=== PATIENT | female | born 1965 | race Caucasian/White ===

== ENCOUNTER 2019-07-28 14:45 | Outpatient (CLI) | payer OTHER, SELFPAY ==
--- NOTE | 2019-07-28 | ECHO_ITS ---
Patient Info Name: Candie Neff Age: 54 years : 1965 Gender: Female Ht: 66 in Wt: 175 lbs BSA: 1.94 m2 HR: 61 bpm BP: 124 / 86 mmHg Heart Rhythm: Sinus Rhythm Technical Quality: Good Exam Date: 07/28/2019 3:25 PM Exam Location: [facility] Patient Status: Outpatient Admit Date: 07/28/2019 Staff Ordering Physician: NicaAmbrocio MD Lunchroom Aide: Shae Toney RDCS Attending Provider: Nica, Ambrocio Carmichael MD Referring Physician: Nica BADILLO; Exam Type: CA echo doppler color flow Study Info Indications z787.898 - personnel hx of other conditions Complete two-dimensional, color flow and Doppler transthoracic echocardiogram is performed. Summary 1. Left ventricular chamber dimension is mildly enlarged. 2. Left ventricular systolic function is normal, estimated at 60-65%. 3. There is mildly increased left ventricular wall thickness. 4. Left ventricular septal wall motion is normal. 5. The left ventricular diastolic function is normal. 6. Left atrial chamber dimension is mildly enlarged. 7. There is mild mitral valve regurgitation. 8. There is mild tricuspid valve regurgitation. Left Ventricle Left ventricular chamber dimension is mildly enlarged. Left ventricular systolic function is normal, estimated at 60-65%. There is mildly increased left ventricular wall thickness. Left ventricular septal wall motion is normal. The left ventricular diastolic function is normal. Right Ventricle Right ventricular chamber dimension is normal. Right ventricular systolic function is normal. Left Atria Left atrial chamber dimension is mildly enlarged. Right Atria Right atrial chamber dimension is normal. Atrial Septum Intact interatrial septum visualized by color flow imaging. Aortic Valve The aortic valve is trileaflet. There is mild aortic valve sclerosis. There is no aortic valve stenosis. There is trace aortic valve regurgitation. Pulmonic Valve The pulmonic valve is normal. There is no pulmonic valve stenosis. There is trace pulmonic regurgitation. Mitral Valve The mitral valve has thickened leaflets. There is no mitral valve stenosis. There is mild mitral valve regurgitation. Tricuspid Valve The tricuspid valve leaflets are normal. There is no significant tricuspid valve stenosis. There is mild tricuspid valve regurgitation. No pulmonary hypertension, estimated pulmonary arterial systolic pressure is 21 mmHg. Pericardium/Pleural The pericardium appears normal. There is no pericardial effusion. Inferior Vena Cava Normal inferior vena cava with >50% collapse upon inspiration consistent with normal right atrial pressure, 5 mmHg. Aorta The aortic root size at the sinus of Valsalva is normal. The prox ascending aorta size is normal. Left Ventricular Outflow Tract Name Value Normal LVOT 2D LVOT Diameter 2.0 cm LVOT Doppler LVOT Peak Gradient 5 mmHg LVOT Mean Gradient 2 mmHg LVOT VTI 23 cm LVOT VTI/AV VTI Ratio
== END 2019-07-28 14:46 | disposition home or self-care (01) ==
PROVIDERS: PCP Family Medicine; Visit Provider Family Medicine
DX: Z87.898 Personal history of other specified conditions (principal); I51.7 Cardiomegaly
CPT/HCPCS: 93306

== ENCOUNTER 2021-07-02 00:06 | Day surgery (SDC) | payer OTHER, SELFPAY ==
[2021-07-01 09:24] VITALS: BMI 29.1
--- NOTE | 2021-07-01 09:26 | SUR.PREOP ---
Report to the Outpatient Waiting Room, entrance under the green pavilion located off [facility], at time 0700 on date __07/02/21 . OR Time: _0900 . - You and your visitor will be asked a series of questions to screen for COVID 19 for your protection. - Only one visitor is allowed at this time. - The patient visitor is requested to leave or wait in car when not with patient. - A mask is required within the hospital. Patients may have clear liquids (water, carbonated beverages, clear teas, apple juice) until 3 hours prior to surgery with a maximum of 20 ounces. - No food from midnight until time of surgery - Infants may have breast milk until 4 hours before surgery, infant formula 6 hours prior to surgery. - Children will be allowed to drink immediately following surgery. If applicable, please bring a bottle or sippy cup to assist with drinking. Juice, water, soda, and popsicles are readily available. For infants on formula, please bring formula the day of surgery. Pacifiers are allowed. Take the following medications with a SIP of water the morning of surgery: __n/a Medications to discontinue per physician n/a Date to take last dose____n/a Please no make-up, nail indonesian, hairspray, perfume, deodorant, or body powder the day of surgery. No jewelry (including any body piercings) or valuables the day of surgery, leave them at home. Please take a shower or bath the night before, or the morning of, surgery with an antibacterial soap. Wear comfortable, loose fitting clothing. Children are encouraged to wear pajamas. - Jewelry must be removed prior to entering the operating room. Rings and piercings that are not removed may be cut off. - The hospital will not accept responsibility for valuables. - Please leave all valuables, including medications, at home the day of surgery. If you are going home after surgery, a licensed wagon driver must drive you home. - NO public transportation without another adult. - We recommend that an adult stay with you for 24 hours following discharge. - We also recommend that you do not drive, make important decision, drink alcoholic beverages, or take any drugs that were not prescribed by your health care provider for at least 24 hours after your discharge time. For Pediatric surgeries, we recommend two adults accompany the child home (only one inside the building at this time). Follow any additional instructions given to you from your surgeon. If you or anyone in your household have experienced Covid symptoms in the past week, please notify your surgeon or the nurse liaison at the phone number below for possible testing. Telephone instructions given to alicia le and asked if any additional questions and then verbalized understanding. Patient advised to call surgeon office or pre surgery nurse liaison [phone] if any additional questions.
[2021-07-02] VITALS (11 sets, daily range): BP systolic 123–158; BP diastolic 68–87; PULSE 76–100; RESP 16–22; TEMP 36.1–36.3; O2SAT 95–100
[2021-07-02] MEDS: LACTATED RINGERS 1,000 ML 30 ML IV CONT ×2 (07:30→11:42)
[2021-07-02 07:42] LABS: Urine Cotinine NEGATIVE
--- NOTE | 2021-07-02 08:32 | P.PNAN_ITS ---
Anes - Initial Pre Proc Eval Procedure: Operation Date: 07/02/21 09:00 Proposed Procedures p Bilateral Upper and Lower Blepharoplasty, - Salo Kumar MD s Bilateral Lower Eyelid Fat Grafting - Salo Kumar MD Date/Time: 07/02/21 08:32 Surgeon: Salo Kumar MD Pre Op Diagnosis: blephartosis Patient Data Age: 56 Gender: F Height: 1.68 m Weight: 81.81 kg Allergies Allergy/AdvReac Type Severity Reaction Status Date / Time No Known Allergies Allergy Mild Verified 07/01/21 09:08 Home Medications Medication Instructions Recorded Confirmed Type escitalopram oxalate 10 mg tablet 10 mg PO HS 05/06/21 07/01/21 History docusate sodium 100 mg capsule 100 mg PO DAILY #14 cap 06/17/21 07/01/21 Rx hydrocodone 5 mg-acetaminophen 325 1 tablet PO Q6H PRN #30 tablet 06/17/21 07/01/21 Rx mg tablet Laboratory Tests 07/02/21 07:25 Cotinine Negative Patient hx anesthesia problems: none Family hx anesthesia problems: none Results Review: All pre-operative results and documents have been reviewed as part of the pre-operative evaluation. [facility] Past Medical History Medical History (Updated 07/02/21 @ 08:33 by Dannie Olivarez MD) Anxiety Overweight Surgical History Surgical History History of Family History Family History Father Heart disease Social History Social History Smoking status: Former smoker Tobacco type: cigarettes Smoking end date: 02/16/98 Additional smoking assessment comments: cigarettes 1 ppd x17 years Alcohol intake: never Living arrangements: alone Spiritual care concerns: No Anes - Eval Final PreProcedure Day of Procedure 07/02/21 08:32 Patient weight: overweight Heart: regular rate and rhythm Lungs: clear to auscultation Airway: Mallampati scale class II Neurological: alert and oriented Last oral intake: >/= 8 hours ASA classification: II Emergent: no Anesthetic plan: proceed Anesthesia type and monitoring: general ETT and standard monitoring Results Review: All pre-operative results and documents have been reviewed as part of the pre-operative evaluation. Informed Consent: The patient's anesthetic plan and its attendant risks and benefits were discussed with the patient/family/POA. Questions were solicited and answers provided to the satisfaction of the patient/family/POA.
--- NOTE | 2021-07-02 08:38 | WPDHPUPDATE1 ---
History and Physical Update Update Date/Time: 07/02/21 08:38 History and Physical has been reviewed, including an updated exam of the patient. There are NO changes in the patient's condition. Risks, benefits, and alternatives have been discussed and questions answered. Patient agrees to proceed with procedure.
--- NOTE | 2021-07-02 09:02 | P.OP_ITS ---
Procedure Note - Detailed Date of Procedure 07/02/21 Pre-op Diagnosis blephartosis Post-op Diagnosis Same Procedure Performed 1. Bilateral upper eyelid blepharoplasty 2. Bilateral transconjunctival lower eyelid blepharoplasty 3. Fat grafting lower lids / cheek Surgeon Salo Kumar MD Anesthesia General Findings Fat grafting volume: 8 cc (4 per side lower lid/ malar) Description of Procedure Preoperatively the risks, benefits, alternatives were discussed in extensive detail. Want her to be very realistic about the risks involved as well as expectations. Was very up front honest about the risk lagophthalmos, dry eyes, blindness, and need for additional procedures. This was a lengthy open-ended conversation answering all of her questions. She would like proceed. Consent obtained. She was marked in the preoperative holding area with her verification. I completed a pinch test of the upper lid to verify no lagophthalmos when simulating upper lid blepharoplasty. She was taken to the operating room placed supine on the operating room table. Anesthesia provided by anesthesiology. She was prepped draped standard sterile fashion. Abdominal examination was completed. No hernias palpable. I tumesced with low volume of tumescent solution. Allowed for adequate time for hemostasis. While waiting for this I injected the upper and lower lids with 1% lidocaine and 0.25% Marcaine with epinephrine. Using hand suction and a 2 mm cannula suction lipectomy of the abdomen was completed to 10 cc syringes. These are placed on Telfa washed and then return to syringes for use after we had adequate time for gravity separation. I proceeded with the upper lid blepharoplasty. Sharply incised the upper lid skin and removed. Open the medial and middle compartment removed just any excess adiposity. No evidence of deep structure injury. This was closed using a running subcuticular 4-0 Prolene which was secured on each end with Steri- Strips. Transconjunctival blepharoplasty was completed. I incised just inferior to the tarsal plate. A preseptal approach was completed and the orbital rim. I then opened the septum for the nasal medial and temporal fat pads. Care was taken to protect the inferior oblique. I removed just what was necessary in order to have optimal contour. Verified strict hemostasis. 18 gauge needle was used to puncture sites or fat grafting. He has a 7 mm fat grafting cannula in multiple planes and passes along the lower lid based on her preoperative planning for the volumes as above. Patient was woken taken to the PACU without difficulty. All instrument sponge counts were correct at the end of the case. Estimated Blood Loss 10 Packing No Pathology None sent Complications No immediate complications Condition Stable Disposition PACU
[2021-07-02] MEDS: LIDO 1%/EPINEPHRINE 1:100,000 50 ML VIAL 10 ML INFILTRATE ×2 (09:14→09:59)
[2021-07-02] MEDS: BUPIVACAINE HCL 0.25% PF 30 ML VIAL INFILTRATE (09:14)
[2021-07-02] MEDS: LACTATED RINGERS IRRIG 1,000 ML, LIDOCAINE HCL 1% LOCAL INJ 50 ML, EPINEPHrine HCL INJ ... INFILTRATE (09:14)
[2021-07-02] MEDS: ceFAZolin 2 GM/D5W 50 ML 2 GM/50 ML BAG IVPB (09:21)
[2021-07-02] MEDS: TRANEXAMIC ACID 1,000MG/ISO100 1,000 MG/100 ML BAG 200 MG IVPB (09:26)
[2021-07-02] MEDS: TETRACAINE HCL 0.5% OPHTH SOLN 4 ML BTL 1 DROP EACH EYE (10:01)
[2021-07-02] MEDS: oxyCODONE HCL (*CRX) 5 MG TAB IR PO (13:14)
[2021-07-02] MEDS: ONDANSETRON INJ 4 MG/2 ML VIAL IV PUSH (13:46)
--- NOTE | 2021-07-02 14:28 | SUR.PHASEII ---
Patient refused Benadryl. She stated, It makes me mean or angry.
[2021-07-02] MEDS: SCOPOLAMINE 1.5 MG PATCH TRANSDERM (14:39)
[2021-07-02] MEDS: FAMOTIDINE 20 MG/2 ML VIAL IV PUSH (14:39)
== END 2021-07-02 15:05 | disposition home or self-care (01) ==
PROVIDERS: PCP Family Medicine; Visit Provider Surgery Plastic and Reconstructive Surgery
PROC: (CPT 15822; principal; 2021-07-02 09:00)
PROC: (CPT 15769; 2021-07-02 09:00)
DX: Z41.1 Encounter for cosmetic surgery (principal); H02.403 Unspecified ptosis of bilateral eyelids; Z87.891 Personal history of nicotine dependence; F41.9 Anxiety disorder, unspecified
CPT/HCPCS: 15822; 15820; 15773; 80307; A9270; J0171; J0690; J1100; J1200; J2250; J2405; J2704; J3010; J7120

== ENCOUNTER 2024-05-21 10:04 | Outpatient (CLI) | payer OTHER, SELFPAY ==
--- NOTE | ~2024-05-21 | MM_ITS ---
EXAMINATION: MM screening alicia BI w jam HISTORY: Screening TECHNIQUE: Craniocaudal and mediolateral oblique 3-D tomosynthesis images were obtained and synthetic 2-D images were generated. CAD analysis was submitted and interpreted. COMPARISON: No prior mammogram is available for comparison at this institution. BREAST PARENCHYMAL COMPOSITION: Not dense: There are scattered areas of fibroglandular density. FINDINGS: There is no evidence of suspicious mass, calcification, or architectural distortion to sugg est malignancy in either breast. There has been no suspicious interval change. IMPRESSION: 1. No mammographic evidence of malignancy. 2. Recommend routine screening mammography in one year. BI-RADS Category 1: Negative Reviewed, dictated and finalized at location A.
--- OUTSIDE RECORDS SUMMARY | 2024-05-21 10:08 | XMS_ITS | Data Portability ---
Author Organization [place] [facility] [employer], Main Office Address [address] [place] [address] Assessment Encounter Date Assessment Date Assessment LastModified by Organization Details LastModified Time 04/19/2024 04/19/2024 Obese female needing CRC screening, High risk, will need MAC Plan- colonoscopy with MAC [email or web address] Not available 04/19/2024 15:00:59 Plan of Treatment Reminders Order Date Submit Date Provider Last Modified By Organization Details Last Modified Time Details Appointments Procedure 60 2024 07:00A Esther Head MD Not available Not available Not available Lab vitamin D3, 25-hydrox y, serum [address] (Lab), [address] [place], [address], 01/27/2024 11:05:51 vitamin B12 + folate, serum or blood [address] (Lab), [address] [place], [address], 01/27/2024 11:05:51 lipid panel, serum [address] (Lab), [address] [place], [address], 01/27/2024 11:05:50 CK (creatine kinase), total, serum [address] (Lab), [address] [place], [address], 01/27/2024 11:05:50 CMP, serum or plasma [address] (Lab), [address] [place], [address], 01/27/2024 11:05:50 TSH, serum or plasma [address] (Lab), [address] [place], [address], 01/27/2024 11:05:51 CBC w/ auto diff [address] (Lab), [address] [place], [address], 01/27/2024 11:05:51 glycohemo globin, total, blood [address] (Lab), [address] [place], [address], 01/27/2024 11:05:51 vitamin B12 + folate, serum or blood [address] (Lab), [address] [place], [address], 10/27/2023 09:14:11 vitamin D, 25-hydrox y, total, serum [address] (Lab), [address] [place], [address], 10/27/2023 09:14:12 magnesium , serum or plasma [address] (Lab), [address] [place], [address], 10/27/2023 09:14:12 lipid panel, serum [address] (Lab), [address] [place], [address], 10/20/2023 08:12:42 CMP, serum or plasma [address] (Lab), [address] [place], [address], 10/20/2023 08:12:42 glycohemo globin, total, blood [address] (Lab), [address] [place], [address], 10/20/2023 08:12:42 TSH, serum or plasma [address] (Lab), [address] [place], [address], 10/20/2023 08:12:42 T4, free, serum [address] (Lab), [address] [place], [address], 10/20/2023 08:12:42 Referral gastroent erologist referral - Has never had a colonosco py . Please call patient to schedule an appointme nt. Pt now has straight [place] Medicaid as primary insurance . #[id number] 3Thank you 2023 024 [email or web address] Jus Head MD, [address] [facility], [facility] [address], [address], 03/30/2024 08:47:45 gynecolog ist referral - Last PAP smear 2 years ago . Please call patient to schedule an appointme nt. Pt now has [place] Medicaid #[id number] as her primary insurance . Thank you 2023 024 [email or web address] Payam, [address], [address], [place], [address], 03/30/2024 08:47:06 [email or web address] logist referral - 58 y/o urinary leakage , for 3 years , had one baby . Please eval and treat. Please call patient to schedule an appointme nt. Thank you 2023 024 [email or web address] Anthony Castaneda MD, [address], [address], [place], [address], 11/10/2023 08:39:25 Procedures None recorded. Surgeries None recorded. Imaging MAMMO, screening , digital, bilateral 20[email or web address] [place] [address], [address], [place], [address], 02/02/2024 09:01:17 Medication Orders escitalop ada 10 mg tablet 2023 024 [facility] [place], [address], 10/13/2023 12:06:16 escitalop ada 10 mg tablet 2022 023 [facility] [address] [place], [address], 12/31/2022 09:43:20 Patient TargetsNo targets recorded. Patient Instructions Encounter Date Encounter Id Patient Instructions Last Modified By Organization Details Last Modified Time 10/13/2023 [id number] reviewed salty foods to avoid , walk . recheck BP here free in 7 days [email or web address] Not available 10/18/2023 15:53:20 01/19/2024 [id number] she refuses a BP pill, Advised getting a fitbit ,work up gradually to 10, 000 strides daily; avoid salt ., reviewed salty foods [email or web address] Not available 01/28/2024 11:01:33 Reason for Referral Urogynecologist Referral for Urinary incontinence 58 y/o urinary leakage , for 3 years , had one baby . Please eval and treat. Please call patient to schedule an appointment. Thank you Referring Physician: Blake Price, Family Medicine, Encounter Date: 10/13/2023 Business Development Sales Executive Referral for Sc reening for malignant neoplasm of cervix Last PAP smear 2 years ago . Please call patient to schedule an appointment. Pt now has [place] Medicaid #[id number] as her primary insurance. Thank you Referring Physician: Blake Price [facility], Encounter Date: 01/19/2024 Records Management Director Referral for Screening for malignant neoplasm of colon Has never had a colonoscopy . Please call patient to schedule an appointment. Pt now has straight [place] Medicaid as primary insurance. #[id number] you Referring Physician: Blake Price [facility], Encounter Date: 01/19/2024 Results Created Date Observation Date Name Description Value Unit Range Abnormal Flag Note LastModifiedBy Organization Detail LastModifiedTime 01/25/20 22 01/24/2022 urina lysis , dipst ick Leukocytes (reference range: negative armin/ l) Negati ve Not Available [address], [place], [address], 01/24/2022 10:46:17 01/25/20 22 01/24/2022 urina lysis , dipst ick Nitrite (reference rage: negative mg/dl) negati ve Not Available [address], [place], [address], 01/24/2022 10:46:17 01/25/20 22 01/24/2022 urina lysis , dipst ick Urobilinogen (reference range: 0.2-1 mg/dl) 0.2 Not Available [address], [place], [address], 01/24/2022 10:46:17 01/25/20 22 01/24/2022 urina lysis , dipst ick Protein (reference range: negative mg/dl) 30 Not Available [address], [place], [address], 01/24/2022 10:46:17 01/25/20 22 01/24/2022 urina lysis , dipst ick pH (reference range: 5-7) 6.5 Not Available [address] , [address], [place], [address], 01/24/2022 10:46:17 01/25/20 22 01/24/2022 urina lysis , dipst ick Blood (reference range: negative Sandoval/ l) Negati ve Not Available [address] , [address], [place], [address], 01/24/2022 10:46:17 01/25/20 22 01/24/2022 urina lysis , dipst ick Specific [place] (reference range: 1.005-1.030) 1.020 Not Available [address] , [address], [place], [address], 01/24/2022 10:46:17 01/25/20 22 01/24/2022 urina lysis , dipst ick Ketone (reference range: negative mg/dl) Negati ve Not Available [address] , [address], [place], [address], 01/24/2022 10:46:17 01/25/20 22 01/24/2022 urina lysis , dipst ick Bilirubin (reference range: negative mg/dl) Negati ve Not Available [address] , [address], [place], [address], 01/24/2022 10:46:17 01/25/20 22 01/24/2022 urina lysis , dipst ick Glucose (reference range: negative mg/dl) Negati ve Not Available [address], [place], [address], 01/24/2022 10:46:17 01/25/20 22 01/24/2022 urina lysis , dipst ick Appearance Clear Not Available [address], [place], [address], 01/24/2022 10:46:17 01/25/20 22 01/24/2022 urina lysis , dipst ick Color Dark Yellow Not Available [address], [place], [address], 01/24/2022 10:46:17 Result Notes None recorded. Problems Name Problem SNOMED Code Status Onset Date Resolution Date Notes Provider Name and Address Organization Details Recorded Time Plantar fasciitis of right foot 5604467155898 9101 Active 2017 Not Available [facility] 3 08:47:20 Plantar fasciitis 126936760 Active Not Available [facility] 3 08:47:20 Anxiety 10142443 Active Not Available [facility] 3 08:47:20 Pain in wrist 96518790 Active Not Available [facility] 3 08:47:20 Muscle pain 19668985 Active Not Available [facility] 3 08:47:20 Tinnitus of left ear 8962298494582 Active 2023 ALCIRA Freitas [address], [address], [place], [address] , [employer] 4 11:58:33 Adult health examinatio n Active 2023 ALCIRA Freitas [address], [address], [place], [address] , [employer] 4 12:00:28 Urinary incontinen ce 012014662 Active 2023 ALCIRA Freitas [address], [address], [place], [address] , [employer] 4 12:01:15 At increased risk of nutritiona l deficit 411921727 Active 2023 ALCIRA Freitas [address], [address], [place], [address] , [employer] 4 12:08:40 Screening for malignant neoplasm of cervix Active 2023 ALCIRA Freitas [address], [address], [place], [address] , [employer] 4 11:38:00 Screening mammograph y Active 2023 ALCIRA Freitas [address], [address], [place], [address] , [employer] 4 11:38:16 Screening for malignant neoplasm of colon Active 2023 ALCIRA Freitas [address], [address], [place], [address] , [employer] 4 11:41:56 Hyperlipid emia screening Active 2023 ALCIRA Freitas [address], [address], [place], [address] , [employer] 4 11:44:32 At increased risk for nutritiona l problem 266869661 Active 2023 ALCIRA Freitas [address], [address], [place], [address] , [employer] 4 11:45:32 Problem Notes None recorded. Procedures Surgical History Date Name Laterality Status Provider Name and Address Organization Details Recorded Time blepharoplasty of upper eyelid completed WALLY Alcantar [employer] [facility] [employer] 12/31/2022 09:33:45 blepharoplasty of lower eyelid completed Annalisa Peace MA [facility] [employer] [facility] 12/31/2022 09:33:55 Imaging Results None recorded. Procedure Notes None recorded. Medical Equipment None Reported. Allergies No known drug allergies Medications Name Sig Start Date Stop Date Status Note LastModified by Organization Details LastModified Time doxycycline hyclate 100 mg capsule active Not Available Not Available N ot Available hydrocodone 5 mg-acetamin ophen 325 mg tablet TAKE 1 TABLET BY MOUTH EVERY 6 HOURS NEEDED FOR PAIN 08/08 completed Not Available Not Available Not Available tretinoin 0.025 % topical cream 12/31 completed Not Available Not Available Not Available meloxicam 15 mg tablet Take 1 tablet every day by oral route. 03/21 completed Not Available Not Available Not Available ciprofloxac in 500 mg tablet Take 1 tablet every 12 hours by oral route for 5 days. 12/31 completed Not Available Not Available Not Available Kenalog 40 mg/mL suspension for injection Take 1 mL by injection route. 12/02 completed Not Available Not Available Not Available alprazolam 0.5 mg tablet TAKE 1 TABLET BY MOUTH THREE TIMES A DAY NEEDED 12/31 completed Not Available Not Available Not Available alprazolam 0.25 mg tablet active Not Available Not Available Not Available docusate sodium 100 mg capsule TAKE 1 CAPSULE BY MOUTH EVERY DAY 08/08 completed Not Available Not Available Not Available mupirocin 2 % topical ointment active Not Available Not Available Not Available Nasonex 50 mcg/actuati on [place] active Not Available Not Available Not Available methylpredn isolone 4 mg tablets in a dose pack TAKE 6 TABLETS ON DAY 1 DIRECTED ON PACKAGE AND DECREASE BY 1 TAB EACH DAY FOR A TOTAL OF 6 DAYS 03/21 completed Not Available Not Available Not Available fluoxetine 20 mg capsule active Not Available Not Available Not Available escitalopra m 10 mg tablet take 2 tablets daily in the am active Not Available Not Available No t Available cyclobenzap rine 5 mg tablet Take 1 tablet every day by oral route at bedtime. active Not Available Not Available No t Available Golytely 236 gram-22.74 gram-6.74 gram-5.86 gram oral solution active Not Available Not Available Not Available Vitals Date Recorded Body weight Body mass index (BMI) Body height Body temperature Heart rate Oxygen saturation Oxygen saturation in Arterial blood by Pulse oximetry Systolic blood pressure Diastolic blood pressure Provider Name and Address Organization Details Last Updated DateTime 3 79007.7 7 g 30.2 kg/m2 167.64 cm 97.3 [degF] 83 /min 98 % 98 % 128 mm[Hg] 88 mm[Hg] Annalisa Peace MA [facility] [employer] [facility] 3 09:31:28 Date Recorded Body height Body mass index (BMI) Body weight Body temperature Heart rate Oxygen saturation Oxygen saturation in Arterial blood by Pulse oximetry Respiratory rate Systolic blood pressure Diastolic blood pressure Systolic blood pressure Diastolic blood pressure Provider Name and Address Organization Details Last Updated DateTime 4 167.64 cm 30.8 kg/m2 79313.1 4 g 98.2 [degF] 79 /min 95 % 95 % 16 /min 160 mm[Hg] 108 mm[Hg] 152 mm[Hg] 108 mm[Hg] Kristen Lorenzo RN [facility] [employer] [facility] 4 12:23:51 Date Recorded Body height Body mass index (BMI) Body weight Body temperature Oxygen saturation Oxygen saturation in Arterial blood by Pulse oximetry Heart rate Systolic blood pressure Diastolic blood pressure Provider Name and Address Organization Details Last Updated DateTime 4 167.64 cm 29.5 kg/m2 84814.4 g 97.7 [degF] 96 % 96 % 78 /min 132 mm[Hg] 92 mm[Hg] Kristen Lorenzo RN [facility] [employer] [facility] 4 11:27:08 Date Recorded Body height Body mass index (BMI) Body weight Heart rate Oxygen saturation Oxygen saturation in Arterial blood by Pulse oximetry Systolic blood pressure Diastolic blood pressure Provider Name and Address Organization Details Last Updated DateTime 5 167.64 cm 29.5 kg/m2 70285.4 g 83 /min 97 % 97 % 134 mm[Hg] 82 mm[Hg] PHILIPPE Frnaks [facility] [employer] [facility] 5 14:27:01 Social History Question Answer Notes LastModified by Organizat ion Details LastModified Time Tobacco Smoking Status Former Smoker Annalisa Peace MA [facility], [facility] [employer] [facility] 12/31/2022 09:33:14 What Is Your Level Of Alcohol Consumption? None [email or web address] Information not available 12/31/2022 What Is Your Level Of Caffeine Consumption? Heavy [email or web address] Information not available 12/31/2022 Which Illicit Or Recreational Drugs Have You Used? Procious [email or web address] Information not available 12/31/2022 When Did You Quit Smoking? 15+yearssin andriy ferguson [email or web address] Information not available 12/31/2022 What Is Your Current Pack Years? 20-29packye ars [email or web address] Information not available 12/31/2022 Do You Use Any Illicit Or Recreational Drugs? Yes [email or web address] Information not available 12/31/2022 Have You Used IV Drugs? No [email or web address] Information not available 12/31/2022 Do You Or Have You Ever Used Any Other Forms Of Tobacco Or Nicotine? No [email or web address] Information not available 12/31/2022 Sex: Unknown Functional Status None recorded. Mental Status None recorded. Family History Nothing Reported. Medical History No medical history recorded. Gynecological HistoryNo gynecological history recorded. Obstetrics History GPAL:G 0 P 0 0 0 0 Past Encounters Encounter ID Performer Location Encounter Start Date Encounter Closed Date Diagnosis/Indication Diagnosis SNOMED-CT Code Diagnosis ICD10 Code Diagnosis Note [id number] [facility] [address] [place] [address] 08/08/2021 00:00:00 08/08/2021 15:03:03 [id number] [facility] [address] [place] [address] 01/24/2022 00:00:00 01/24/2022 17:04:24 [id number] Ambrocio Moore MD [facility] [address] [place] [address] 12/31/2022 09:22:19 12/31/2022 09:44:45 Anxiety 74449788 F41.9 Refilled escitalopr am RTC for WWE and physical. [id number] ALCIRA Freitas [facility] [address] [place] [address] 10/13/2023 11:32:22 10/13/2023 12:23:49 Adult health examination 093950243 Z00.00 Urinary incontinence 165 750518 R32 Anxiety 32296760 F41.9 At increas ed risk of nutritional deficit 912413487 Z91.89 [id number] ALCIRA Freitas [facility] [address] [address] 01/19/2024 11:15:22 01/19/2024 11:57:19 Screening mammography 76130100 Z12.31 Screening for malignant neoplasm of cervix 693857242 Z12.4 Screening for malignant neoplasm of colon 870321473 Z12.11 Hyperlipid emia screening 815037736 Z13.220 At increas ed risk for nutritional problem 662625723 Z91.89 Anxiety 46667545 F41.9 [id number] Jus Head MD [facility] General Surgery [address] [address] 04/19/2024 14:22:55 04/19/2024 15:04:25 Health Concerns Section Related Observation LastModified by Organization Detai ls LastModified Time None Recorded Concern Status LastModified by Organization Details LastModified Time None Recorded Advance Directives Directive None Recorded Payers Encounter Date Sequence Insurance Name Policy Number Policy Martinez Covered Member ID Martinez Member ID Guarantor Name 12/31/2022 1 [place] [id number] Candie E [place] [id number] [place]ie [place] 10/13/2023 1 [facility] (O) [place] Candie Marce-We aver [id number] Candie Marce-[employer] 01/19/2024 1 [facility] (O) [place] [id number] Candie Marce-We aver 04/19/2024 1 [place] Candie E Marce [id number] Candie Marce-We aver Notes Date Note Type Note Provider Name and Address Organization Details Recorded Time 12/31/2022 text/html Here today for a f/u of lexapro. Needs a refill of this. She has not had it times 1 week .Her jaws are clenching and thrust of tongue on palate when not on lexapro. Needs to get back on this. Ambrocio Moore MD [address], [address] [address], [place], [address], [employer] 12/31/2022 20:11:06 10/13/2023 text/html going through , stress lately younger brother , drug addict at her house , in the [place] ALCIRA Freitas [address] [place] [address], [place], [address], [employer] 10/18/2023 15:54:33 01/19/2024 text/html no changes ALCIRA Freitas [address], [facility] [address], [place], [address], [employer] 01/28/2024 11:02:28 04/19/2024 text/html 58 yo h/o anxiet y on multiple psych meds, last colonoscopy 10 years ago. Jus Head MD [address], [address] [address], [place], [address], [employer] 04/19/2024 15:01:04 OBGyn Episode No OBEpisode recorded.
--- OUTSIDE RECORDS SUMMARY | 2024-05-21 10:08 | XMS_ITS | Data Portability ---
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 Patient will come back in a year unless there are new symptoms. [email or web address] Not available 04/05/2024 11:38:20 Plan of Treatment Reminders Order Date Submit Date Provider Last Modified By Organization Details Last Modified Time Details Appointments None recorded. Lab None recorded. Referral pelvic floor therapy referral [address] (Outpatient Physical Therapy), [address], [place], [address], 14:21:22 Procedures None recorded. Surgeries None recorded. Imaging MAMMO, screening, digital, bilateral 2024 025 [email or web address] Not available 04:09:55 Medication Orders None recorded. Patient TargetsNo targets recorded. Patient InstructionsNo instructions recorded. Reason for Referral Pelvic Floor Therapy Referra l for Female stress incontinence Referring Physician: Thu Guerin DANCER OR CHOREOGRAPHER, Encounter Date: 04/05/2024 Results Created Date Observation Date Name Description Value Unit Range Abnormal Flag Note LastModifiedBy Organization Detail LastModifiedTime 04/05/19 25 04/05/2024 IMAGE GUIDE D PAP AND HPV REGAR DLESS image guided Pap, HPV regardless of Pap result SEE RESULT S BELOW CASE REPOR T: Cytol ogy Gynec ologi debbie Repor t Case: [id number] Autho jackie hawkins Provi sailaja: Thu Guerin, ANA Cross cted: 04/05 1137 Order ing Locat ion: [place] [facility] Recei devin: 04/06 0151 First Scree n: Reilly sinha, [place] hussein, CT Speci men: Lise guthrie Pap - Image d, Cervi x STATE MENT OF ADEQU ACY: Satis facto ry for evalu ation Trans forma tion zone compo nent absen t ----- ----- ----- ----- ----- ----- ----- ----- ----- ----- ----- ----- ----- ----- ----- ----- ----- ---- FINAL DIAGN OSIS: Negat luis alfredo for Intra epith elial Lesderic todd or Summer turner (NIL) . Elect abdoulaye luna by [place] sinha, CT on 2024 at 1843 FOOT SETTER ----- ----- ----- ----- ----- ----- ----- ----- ----- ----- ----- ----- ----- ----- ----- ----- ----- ---- HPV RESUL TS: HPV mRNA E6/E7 : No HPV mRNA Detec lynne NOTE: This high risk HPV mRNA assay detec ts fourt een high- risk HPV types (16, 18, 31, 33, 35, 39, 45, 51, 52, 56, 58, 59, 66, 68) witho ut diffe renti ation . COMME NT: This speci men was revie wed by a Cytot echno logis t and/o r Patho logis t (as indic ated in this repor t) after evalu ation using the Thinp rep Imagi ng Syste m. CLINI DEBBIE INFOR MATIO N: Menst rual Statu s: LMP (if appli cable ): Clini debbie Histo ry/Pr eviou s Pap: Type of Neopl christopher (if appli cable ): Signi fican t Clini debbie Findi ngs: Other Histo ry: Hormo mateus (if appli cable ): PAP EDUCA RODY L NOTE: The Pap Test is a scree jerri test with an inher ent false negat luis alfredo rate. Liqui d-bas ed sampl ing may decre ase, but will not elimi marielle, false negat luis alfredo resul ts. A negat luis alfredo resul t does not precl ude the prese nce and/o r devel opmen t of disea se, since the prese nce of abnor mal cells in the sampl e depen ds on the locat ion of the lesio n and sampl ing techn ique. Bernard nued regul ar scree jerri is the best metho d of cance r preve ntion . If repor lynne cytol ogic findi ng do not corre late with physi debbie and/o r histo rical findi ngs, furth er inves tigat ion is recom kimberlee d, as clini giovanni warra nted. Not Available [facility] (Lab) [address], [place], [address], 04/10/2024 23:55:27 Result Notes None recorded. Procedures Surgical History Date Name Laterality Status Provider Name and Address Organization Details Recorded Time 2 Date of Last Mammogram completed [facility] 04/05/2024 11:38:47 2 Date of Last Pap Smear completed [facility] 04/05/2024 11:38:47 4 Caesarean Section completed [facility] 04/05/2024 11:38:48 Endometrial A[address]ation completed [facility] 04/05/2024 11:38:48 Imaging Results None recorded. Procedure Notes None recorded. Medical Equipment None Reported. Allergies No known drug allergies Medications Name Sig Start Date Stop Date Status Note LastModified by Organization Details LastModified Time escitalopram 10 mg tablet TAKE 1 TABLET BY MOUTH ONCE DAILY active Not Available Not Available No t Available Vitals Date Recorded Body height Body mass index (BMI) Body weight Systolic blood pressure Diastolic blood pressure Provider Name and Address Organization Details Last Updated DateTime 04/05/2024 167.64 cm 30 kg/m2 14229.18 g 159 mm[Hg] 87 mm[Hg] DIANNE Lupis [facility] 11:42:36 Social History Question Answer Notes LastModified by Organizat ion Details LastModified Time Do You Have An Advance Directive? No Information n ot available 04/05/2024 What Is Your Level Of Alcohol Consumption? None [email or web address] Information not available 04/05/2024 Are You Blind Or Do You Have Difficulty Seeing? No Information n ot available 04/05/2024 What Is Your Level Of Caffeine Consumption? Moderate [email or web address] Information not available 04/05/2024 How Much Tobacco Do You Chew? None [email or web address] Information not available 04/05/2024 In The 14 Days Before Symptom Onset, Have You Had Close Contact With A Laboratory-confirm ed COVID-19 While That Case Was Ill? No [email or web address] Information n ot available 04/05/2024 In The 14 Days Before Symptom Onset, Have You Had Close Contact With A Person Who Is Under Investigation For COVID-19 While That Person Was Ill? No [email or web address] Information not available 04/05/2024 Have You Been To An Area Known To Be High Risk For COVID-19? No [email or web address] Information not available 04/05/2024 Are You Deaf Or Do You Have Serious Difficulty Hearing? No [email or web address] Information not available 04/05/2024 What Is The Highest Grade Or Level Of School You Have Completed Or The Highest Degree You Have Received? 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 No [email or web address] Information not available 04/05/2024 Do You Use Protection During Sex? Always Information not available 04/05/2024 Do You Use Your Seat Belt Or Car Seat Routinely? Yes [email or web address] Information not available 04/05/2024 Do You Have Smoke And Carbon Monoxide Detectors In Your Home? Yes [email or web address] Information not available 04/05/2024 At What Age Did You Start Smoking Tobacco? 13 [email or web address] Information not available 04/05/2024 How Much Tobacco Do You Smoke? No [email or web address] Information not available 04/05/2024 Do You Feel Stressed (tense, Restless, Nervous, Or Anxious, Or Unable To Sleep At Night)? [id number] [email or web address] Information not available 04/05/2024 Do You Use Any Illicit Or Recreational Drugs? Yes Information not available 04/05/2024 Do You Use Sunscreen Routinely? Yes Information not available 04/05/2024 How Many Years Have You Smoked Tobacco? 15 [email or web address] Information not available 04/05/2024 Have You Used IV Drugs? No [email or web address] Information not available 04/05/2024 Sex: Unknown Functional Status Question Answer Note LastModified by Organization D etails LastModified Time Are you able to walk? YESWOREST [email or web address] Information not available 04/05/2024 What is your exercise level? Moderate Information not available 04/05/2024 Mental Status None recorded. Family History Nothing Reported. Medical History Condition Response Allergies (Food, seasonal, environmental ) N Other N Breast Cancer N Drug/Latex Allergies/Reactions N Blood Transfusion N Dermatologic Disorders N Lung Disease N Defects or Inherited Disease N Breast Problem N Gestational Diabetes N Hematologic disorders N Anesthesia Complications N History of STI N Deep Vein Thrombosis N Polycystic ovary syndrome N Anxiety Disorder N Autoimmune disease N Arthritis N Infertility N Polyps N Acid Reflux (GERD) N History of abnormal pap N Cancer N Stroke N Varicosities N Neurologic/Epilepsy N Endometriosis N High Cholesterol N Headaches N Fibromyalgia N Kidney Disease N Heart Problems N Kidney or Bladder Problems N Thyroid Problems N GI Problems N Eating Disorder N Anemia N Art (IVF or FET) N Psychiatric Illness N Ovarian Cancer N Diabetes N Pulmonary (TB, Asthma) N Hepatitis/Liver Disease N No Past Medical History N Eczema N Urinary Tract Infection N Abuse/Domestic Violence N Asthma N Trauma/Violence N Depression/ depression N Heart Disease N Pre-Eclampsia N Hypertension N Osteoporosis N Thrombophilias N Gynecological History Statement/Question Response Abnormal Pap N Date of Last Mammogram 02/25/2021 On BCP's at Conception? N N Was last menstrual period normal N STIs/STDs N HPV Vaccine N Duration of Flow (days) 4 Current Control Method Abstinence Age at First Child 38 If Post Menopausal, Age at Menopause 49 Date of Last Colonoscopy Sexually Active? N Abstinence Date of DEXA bone scan Age of first menstrual cycle 11 Date of Last Pap Smear 02/25/2021 Sexual Problems? N Desired Control Method Abstinence LMP Unknown N Obstetrics History GPAL:G 1 P 0 0 0 1 Type Value Living 1 Total 1 Past Encounters Encounter ID Performer Location Encounter Start Date Encounter Closed Date Diagnosis/Indication Diagnosis SNOMED-CT Code Diagnosis ICD10 Code Diagnosis Note [id number] FERNIE Bucio [facility] [address] [address] 04/05/2024 11:34:35 04/06/2024 15:57:19 Gynecologic examination 06071328 Z01.419 WWEpostmen opausalPap - done todaySTI screen - declinedMa mmogram - order givenColon cancer screening - has scheduled/ ordered through [facility] - n/aRoutine labs - UTD/PCPBP precaution s discussed, encouraged PCP f/uRTC in 1 yr or sooner if needed Do monthly self breast exams.It is advised to get annual flu shot in the fall and she could obtain at local pharmacy. If you haven't received the Tdap vaccine in the last 10 years you should obtain one as well.Have mammogram yearly, bone density every 2-3 years and stay up to date on colon cancer screening. Engage in regular exercise. Avoid tobacco and illicit drugs. This lifestyle behavior pattern will lead to less health conditions and longer life span. If BMI greater than 25 dietary consult advised.Qu estions have been answered. Screening for malignant neoplasm of breast 612749859 Z12.39 Female str ess incontinence [id number] N39.3 referral for pelvic floor physical therapy placeddecr ease caffeine intake recommende d Health Concerns Section Related Observation LastModified by Organization Detai ls LastModified Time None Recorded Concern Status LastModified by Organization Details LastModified Time None Recorded Advance Directives Directive N: Payers Encounter Date Sequence Insurance Name Policy Number Policy Martinez Covered Member ID Martinez Member ID Guarantor Name 04/05/2024 1 [place] [facility] Candie Zheng [id number] Candie Zheng Notes Date Note Type Note Provider Name and Address Organization Details Recorded Time 04/05/2024 text/html Annual Fur Liner Post-MenopausalReport ed bypatient.Menopausal Symptoms:no menopausal symptoms; normal vaginal lubrication Vaginal Bleeding:history of menopause having occurred; no history of post menopausal bleeding Urinary Symptoms:no hematuria; no nocturia; no urinary frequency;stress incontinence Vulva:no genital lesion; no vulvar atrophy Vagina:normal vaginal discharge; no vaginal atrophy Breast:no breast lump; no nipple discharge; no breast pain Sexual Complaints:no sexual complaints Psychological Symptoms:no depression; no anxietyNotes:58yo wwelast pap 2021no h/o abnormal papslast mammogram olonoscopy - has scheduledleaking small amounts of urine with coughing/exercise. Drinks caffiene throughtout the day FERNIE Bucio [address], [place], [address], [facility] 04/06/2024 10:23:31 OBGyn Episode Ob Episode Information Episode Created Date Number of Fetuses Patient Bloodtype Patient rh Status Prepregnancy Weight lbs Domestic Partner Domestic Partner Phone Father Name Linux Unix Administrator Status 04/05/19 25 1 CLOSED Fetus Data First Name Last Name Admitted to NICU Weight (g) Sex Living Outcome Pediatric Complications Fetus ID Race Codes Race Delivery Type 4139.02 7 F Full Term [id number] Paco Calculation Initial Paco Date Initial Exam Date Initial Exam Provider Initial Ultrasound Date Last Menstrual Period Date Ultra Sound Weeks Gestation 0 Eighteen To Twenty Week Paco Update Ultra Sound Date Fundal Height At Umbil Quickening Date Ultra Sound Latest Weeks Gestation Final Paco Confirmed By Final Paco Confirmed Date Final Paco Date Ultra Sound Latest Days Gestation 0 0 Menstrual History Last Menstrual Date Menses Monthly On Bcp Conception Prior Menses Frequency Hcg Plus Date Menarche Onset Age Delivery Information Delivery Date Delivery Type Labor Anesthesia Weeks Gestation Incision Type Labor Labor Length Hrs Delivered By Post Complications Tubal Sterilization Discharge Date Comments 4 Discharge Information Feeding Method Contraceptive Method Maternal HG B and HCT Levels
== END 2024-05-21 10:05 | disposition home or self-care (01) ==
PROVIDERS: PCP Family Medicine; Visit Provider Nurse Practitioner
DX: Z12.31 Encounter for screening mammogram for malignant neoplasm of breast (principal)
CPT/HCPCS: 77063; 77067

== ENCOUNTER 2024-10-27 12:47 | Outpatient (CLI) | payer OTHER, SELFPAY ==
--- NOTE | ~2024-10-27 | XR_ITS ---
EXAMINATION: XR foot RT min 3V, 10/27/2024 13:05 CDT HISTORY: foot pain, bilateral, LATERAL PAIN COMPARISON: No comparisons available. Findings: No acute fracture or malalignment. No significant degenerative changes. Soft tissues unremarkable. Impression: No acute fracture or malalignment. Reviewed, dictated and finalized at location A. Impression: No acute fracture or malalignment.
--- NOTE | ~2024-10-27 | XR_ITS ---
EXAMINATION: XR foot LT min 3V, 10/27/2024 13:05 CDT HISTORY: foot pain, bilateral, PAIN ANTERIOR COMPARISON: No comparisons available. Findings: No acute fracture or malalignment. No significant degenerative changes. Soft tissues unremarkable. Impression: No acute fracture or malalignment. Reviewed, dictated and finalized at location A. Impression: No acute fracture or malalignment.
== END 2024-10-27 12:48 | disposition home or self-care (01) ==
PROVIDERS: PCP Family Medicine; Visit Provider Family Medicine
DX: M79.671 Pain in right foot (principal); M79.672 Pain in left foot
CPT/HCPCS: 73630